=== PATIENT | female | born 1965 | race Caucasian/White ===

== ENCOUNTER 2022-09-23 20:48 | Inpatient (IN) | payer OTHER ==
[~2022-09-23] VITALS: Ht 165.1 cm; Wt 81.8 kg
[2022-09-23] MEDS ORDERED: SODIUM CHLORIDE 0.9% 1,000 ML IV ONE (22:45)
[2022-09-23] MEDS ORDERED: MORPHINE SULFATE 2 MG/ML SYRINGE IVP ONE (22:45)
[2022-09-23 23:25] LABS: COVID AG,FIA SOURCE NASOPHARYNGEAL
[2022-09-23 23:35] LABS: BASOPHILS % (AUTO) 0.4 % (0.0-2.0); EOSINOPHILS % (AUTO) 0.1 % (1.0-6.0); HEMATOCRIT 39.9 % (36-46); HEMOGLOBIN 13.2 g/dL (12.0-16.0); MEAN CORPUSCULAR HEMOGLOBIN 31.4 pg (26.0-34.0); MEAN CORPUSCULAR HGB CONC 33.2 G/dL (31.0-37.0); MEAN CORPUSCULAR VOLUME 95 fL (80-100); MONOCYTES # (AUTO) 0.3 K/uL (0.1-1.0); MONOCYTES % (AUTO) 3.7 % (2.0-9.0); NEUTROPHILS # (AUTO) 6.3 K/uL (1.8-7.7); NEUTROPHILS % (AUTO) 82.8 % (40.0-70.0); PLATELET COUNT (AUTO) 239 K/uL (150-450); RED BLOOD CELL COUNT(AUTO) 4.22 MIL/uL (4.00-5.20); RED CELL DISTRIBUTION WIDTH 13.9 % (11.5-14.5)
[2022-09-23 23:39] LABS: ANION GAP 10 mmol/L (8-16); CALCIUM, TOTAL 9.1 mg/dL (8.8-10.5); CARBON DIOXIDE 24 mmol/L (22-29); CHLORIDE 99 mmol/L (98-107); CREATININE 0.65 mg/dL (0.60-1.30); GLUCOSE,RANDOM 146 mg/dL (70-110); POTASSIUM 3.7 mmol/L (3.5-5.1); SODIUM SERUM 133 mmol/L (136-145); UREA NITROGEN, BLOOD 13 mg/dL (7-18)
[2022-09-23 23:40] LABS: GLOMERULAR FILTR. RATE CALC > 60 mL/min (>60)
[2022-09-23 23:45] LABS: ALANINE AMINOTRANSFERASE 27 U/L (12-78); ALBUMIN 3.6 g/dL (3.4-5.0); ALKALINE PHOSPHATASE 132 U/L (46-116); ASPARTATE AMINOTRANSFERASE 24 U/L (15-37); BILIRUBIN,TOTAL 0.3 mg/dL (0.1-1.0); LIPASE 302 U/L (73-393); TOTAL PROTEIN, SERUM 8.2 g/dL (6.4-8.2)
[2022-09-24 00:07] LABS: LACTIC ACID 2.5 mmol/L (0.4-2.0)
[2022-09-24] MEDS ORDERED: SODIUM CHLORIDE 0.9% 1,000 ML IV ONE ×2 (00:15→02:45)
[2022-09-24] MEDS ORDERED: MORPHINE SULFATE 4 MG/ML SYRINGE IVP ONE (02:30)
[2022-09-24] MEDS ORDERED: MORPHINE SULFATE 4 MG/ML SYRINGE IVP PRN (02:45)
[2022-09-24] MEDS ORDERED: ONDANSETRON HCL 4 MG/2 ML VIAL IVP PRN ×2 (02:45→10:45)
[2022-09-24] MEDS ORDERED: RINGERS SOLUTION,LACTATED 1,000 ML IV ONE (08:00)
[2022-09-24] MEDS ORDERED: ETHYL ALCOHOL 62% ANTISEPTIC NASAL SANITIZER 0.6 ML AMPUL NASAL ONE (08:00)
[2022-09-24] MEDS ORDERED: VANCOMYCIN HCL 1 GM/VIAL ONE (08:33)
[2022-09-24] MEDS ORDERED: BUPIVACAINE 0.25%/EPI 1:200,000/PF 10 ML VIAL ONE (08:33)
[2022-09-24] MEDS ORDERED: HYDROmorphone HCL 2 MG/ML SYRINGE IVP PRN (09:15)
[2022-09-24] MEDS ORDERED: FentaNYL CITRATE PF 100 MCG/2 ML VIAL IVP PRN (09:15)
[2022-09-24] MEDS ORDERED: SUGAMMADEX SODIUM 200 MG/2 ML VIAL IVP ONE (09:33)
[2022-09-24] MEDS ORDERED: BISACODYL 10 MG RECTAL RECTAL SUPPOSITORY PR PRN (10:45)
[2022-09-24] MEDS ORDERED: MAGNESIUM HYDROXIDE SUSPENSION 30 ML UDCUP PO PRN (10:45)
[2022-09-24] MEDS ORDERED: *CLINICAL-LEVOFLOXACIN IVPB DOSING CLINICAL ONE (10:45)
[2022-09-24] MEDS ORDERED: ZOLPIDEM TARTRATE 5 MG TABLET PO PRN (10:45)
[2022-09-24 11:16] VITALS: BP 149/78
[2022-09-24] MEDS ORDERED: SODIUM CHLORIDE 0.9% 250 ML IV ONE (12:09)
[2022-09-24] MEDS: LEVOFLOXACIN 750 MG/D5% WATER 150 ML IV SCH (12:20)
[2022-09-24] MEDS: MORPHINE SULFATE 2 MG/ML SYRINGE IVP PRN (15:38)
[2022-09-24] MEDS: HEPARIN SODIUM,PORCINE 5,000 UNITS/ML VIAL SQ SCH ×2 (15:38→23:09)
[2022-09-24 16:18] VITALS: BP 95/57
[2022-09-24] MEDS: HYDROCODONE/ACETAMINOPHEN 5-325 MG TABLET PO PRN (18:16)
[2022-09-24 20:00] VITALS: BP 99/60
[2022-09-24] MEDS: DOCUSATE SODIUM 100 MG CAPSULE PO SCH (20:20)
[2022-09-24] MEDS: OXYGEN THERAPY IH SCH (20:20)
[2022-09-25] MEDS: ACETAMINOPHEN 325 MG TABLET PO PRN ×2 (00:30→20:16)
[2022-09-25] MEDS: MORPHINE SULFATE 2 MG/ML SYRINGE IVP PRN ×3 (04:43→20:09)
[2022-09-25] MEDS ORDERED: MIDAZOLAM HCL 2 MG/2 ML VIAL IVP ONE (05:47)
[2022-09-25] MEDS ORDERED: FentaNYL CITRATE PF 100 MCG/2 ML VIAL IM ONE (05:47)
[2022-09-25] MEDS ORDERED: ONDANSETRON HCL 4 MG/2 ML VIAL IVP ONE (05:48)
[2022-09-25] MEDS ORDERED: LIDOCAINE/PF 2% 5 ML VIAL CAUDAL ONE (05:48)
[2022-09-25] MEDS ORDERED: SUCCINYLCHOLINE CHLORIDE 20 MG/ML 10 ML VIAL IM ONE (05:48)
[2022-09-25] MEDS ORDERED: PROPOFOL 1% 20 ML VIAL IVP ONE (05:48)
[2022-09-25] MEDS ORDERED: DEXAMETHASONE SOD PHOS 4 MG/ML VIAL IVP ONE (05:48)
[2022-09-25] MEDS ORDERED: ROCURONIUM BROMIDE 10 MG/ML 5 ML VIAL IV ONE (05:48)
[2022-09-25 05:55] LABS: CALCIUM, TOTAL 8.4 mg/dL (8.8-10.5); CREATININE 1.25 mg/dL (0.60-1.30); POTASSIUM 4.3 mmol/L (3.5-5.1)
[2022-09-25 05:56] LABS: BASOPHILS % (AUTO) 0.6 % (0.0-2.0); EOSINOPHILS % (AUTO) 0 % (1.0-6.0); HEMATOCRIT 43.6 % (36-46); HEMOGLOBIN 14.7 g/dL (12.0-16.0); LYMPHOCYTES % (AUTO) 24.8 % (22.0-44.0); MEAN CORPUSCULAR HEMOGLOBIN 31.9 pg (26.0-34.0); MEAN CORPUSCULAR HGB CONC 33.6 G/dL (31.0-37.0); MEAN CORPUSCULAR VOLUME 95 fL (80-100); MONOCYTES % (AUTO) 8.3 % (2.0-9.0); NEUTROPHILS % (AUTO) 66.3 % (40.0-70.0); PLATELET COUNT (AUTO) 297 K/uL (150-450)
[2022-09-25 06:09] LABS: PLATELET MORPHOLOGY COMMENT LARGE PLTS PRESENT
[2022-09-25 07:31] VITALS: BP 100/62
[2022-09-25] MEDS: OXYGEN THERAPY IH SCH ×2 (08:00→20:16)
[2022-09-25] MEDS: DOCUSATE SODIUM 100 MG CAPSULE PO SCH ×2 (09:00→20:18)
[2022-09-25] MEDS: PANTOPRAZOLE SODIUM 40 MG DR TABLET PO SCH (09:19)
[2022-09-25] MEDS: HEPARIN SODIUM,PORCINE 5,000 UNITS/ML VIAL SQ SCH ×3 (09:19→23:32)
[2022-09-25] MEDS: LEVOFLOXACIN 750 MG/D5% WATER 150 ML IV SCH (10:35)
[2022-09-25] MEDS: HYDROCODONE/ACETAMINOPHEN 5-325 MG TABLET PO PRN (10:35)
[2022-09-25 19:35] VITALS: BP 101/57
[2022-09-26 04:05] VITALS: BP 113/67
[2022-09-26 06:41] LABS: BASOPHILS % (AUTO) 0.4 % (0.0-2.0); EOSINOPHILS % (AUTO) 0.1 % (1.0-6.0); HEMATOCRIT 38.3 % (36-46); HEMOGLOBIN 12.7 g/dL (12.0-16.0); LYMPHOCYTES # (AUTO) 2.2 K/uL (1.0-4.8); LYMPHOCYTES % (AUTO) 18.4 % (22.0-44.0); MEAN CORPUSCULAR HEMOGLOBIN 31.2 pg (26.0-34.0); MEAN CORPUSCULAR HGB CONC 33.3 G/dL (31.0-37.0); MEAN CORPUSCULAR VOLUME 94 fL (80-100); MONOCYTES % (AUTO) 8.6 % (2.0-9.0); NEUTROPHILS # (AUTO) 8.5 K/uL (1.8-7.7); NEUTROPHILS % (AUTO) 72.5 % (40.0-70.0); PLATELET COUNT (AUTO) 291 K/uL (150-450); RED BLOOD CELL COUNT(AUTO) 4.08 MIL/uL (4.00-5.20); RED CELL DISTRIBUTION WIDTH 14.1 % (11.5-14.5)
[2022-09-26] MEDS: OXYGEN THERAPY IH SCH (08:00)
[2022-09-26] MEDS: DOCUSATE SODIUM 100 MG CAPSULE PO SCH (08:16)
[2022-09-26] MEDS: HEPARIN SODIUM,PORCINE 5,000 UNITS/ML VIAL SQ SCH (08:16)
[2022-09-26] MEDS: PANTOPRAZOLE SODIUM 40 MG DR TABLET PO SCH (08:16)
[2022-09-26] MEDS: ACETAMINOPHEN 325 MG TABLET PO PRN (08:22)
[2022-09-26 08:26] VITALS: BP 96/58
[2022-09-26] MEDS ORDERED: ACET325T51 PO (10:41)
[2022-09-26] MEDS ORDERED: LEVO250T75 PO (10:41)
[2022-09-26] MEDS: LEVOFLOXACIN 750 MG/D5% WATER 150 ML IV SCH (11:46)
[2022-09-26] MEDS: HYDROCODONE/ACETAMINOPHEN 5-325 MG TABLET PO PRN (11:50)
== END 2022-09-26 14:43 | disposition home or self-care (01) | DRG 227 ==
LOC: EMS 20:51 → 6N 09-24 05:00 → EDBD 09-24 05:00
PROVIDERS: ADMIT Internal Medicine; ATTEND Internal Medicine
PROC: 0DN80ZZ Release Small Intestine, Open Approach (ICD-10-PCS; 2022-09-24)
PROC: 0WUF0JZ Supplement Abdominal Wall with Synthetic Substitute, Open Approach (ICD-10-PCS; principal; 2022-09-24 08:45)
DX: K43.0 Incisional hernia with obstruction, without gangrene (principal); K65.9 Peritonitis, unspecified; E87.1 Hypo-osmolality and hyponatremia; I10 Essential (primary) hypertension; E66.01 Morbid (severe) obesity due to excess calories; Z68.30 Body mass index [BMI] 30.0-30.9, adult; E11.65 Type 2 diabetes mellitus with hyperglycemia; Z20.822 Contact with and (suspected) exposure to COVID-19; Z79.899 Other long term (current) drug therapy; Z88.0 Allergy status to penicillin; Z98.84 Bariatric surgery status; Z90.49 Acquired absence of other specified parts of digestive tract
CPT/HCPCS: 71045; 74018; 74176; 80048; 80053; 83605; 83690; 85025; 88302; 93005; 99285; J0330; J1100; J1644; J1956; J2250; J2270; J2405; J2704; J3010; J3370; J3490; J7030; J7050; Q9967; 36415-L1; 36415-TC; Z7610